=== PATIENT | male | born 1955 | race Caucasian/White ===

== ENCOUNTER 2021-07-02 06:41 | Day surgery (SDC) | payer MEDICARE ==
[~2021-07-02] VITALS: Ht 193 cm; Wt 95.9 kg
--- NOTE | 2021-07-02 07:14 | NUR ---
07/02/21 0714 Bobbi Burrows 1 TRY RIGHT HAND MISSED
== END 2021-07-02 08:48 | disposition home or self-care (01) ==
LOC: ORSCSDS 06:41 → ORD 08:00 → ORSCSDS 08:00
PROVIDERS: Surgery
PROC: 0DBK8ZX Excision of Ascending Colon, Via Natural or Artificial Opening Endoscopic, Diagnostic (ICD-10-PCS; principal; 2021-07-02 08:00)
DX: Z12.11 Encounter for screening for malignant neoplasm of colon (principal); D12.2 Benign neoplasm of ascending colon; K57.30 Diverticulosis of large intestine without perforation or abscess without bleeding; Z87.891 Personal history of nicotine dependence
CPT/HCPCS: 88305; J2704; J7120

== ENCOUNTER 2021-11-17 11:32 | Emergency (ER) | payer MEDICARE ==
[~2021-11-17] VITALS: Ht 193 cm; Wt 95.2 kg
== END 2021-11-17 14:06 | disposition home or self-care (01) ==
LOC: ER 11:32
DX: S52.501A Unspecified fracture of the lower end of right radius, initial encounter for closed fracture (principal); W18.30XA Fall on same level, unspecified, initial encounter
CPT/HCPCS: 29125; 73100; 73110; 99283-25